=== PATIENT | male | born 1995 | race Caucasian/White ===

== ENCOUNTER 2017-11-24 22:16 | Emergency (ER) | payer OTHER ==
[~2017-11-24] VITALS: Ht 175.3 cm; Wt 75.9 kg
[2017-11-24 22:47] VITALS: TEMP 36.5; Ht 175.3 cm; Wt 75.9 kg
[2017-11-24] MEDS ORDERED: IBUPROFEN 600 MG TAB PO STA (23:13)
[2017-11-25 00:14] VITALS: BP 122/70; PULSE 88; O2SAT 98
--- NOTE | 2017-11-25 00:54 | EMERGENCY ROOM VISIT NOTE ---
History Report prepared by [place]: Karri Gayle Under the Supervision of: Dr. Bethel Zhang M.D. First contact with patient: 23:05 Chief Complaint: KNEEPAIN Stated Complaint: R KNEE PAIN History of Present Illness The patient is a 22 year old male who presents to the Emergency Room with complaints of pain in his right knee that occurred suddenly this evening while playing basketball. The patient states that his right foot was planted in the ground and he tried to make a turn and heard a "pop" in the knee. He has a history of a torn ACL in the right knee, and notes that his sound was not as severe as when he tore the ACL. He denies any other injuries while playing basketball. He currently has a prescriptions for an MRI for the right knee. Source of History: patient Onset: Just [employer] Position: knee (right) Quality: other (Basketball Injury) Associated Symptoms: No back pain Review of Systems See HPI for pertinent positives & negatives. A total of 4 systems reviewed and were otherwise negative. Past Medical & Surgical Medical Problems: (1) ACL injury tear ACL injury tear Family History Cancer Social History Smoking Status: Never Smoker Marital Status: single Housing Status: lives with roommate Occupation Status: [employer] student Current/Historical Medications No Active Prescriptions or Reported Meds Allergies Coded Allergies: Penicillins (Verified Allergy, Unknown, ? childhood rx can't recall, ) Physical Exam Vital Signs Date Time Temp Pulse Resp B/P (MAP) Pulse Ox O2 Delivery O2 Flow Rate FiO2 11/25/17 00:14 88 20 122/70 98 11/24/17 22:47 36.5 76 18 139/81 97 Room Air Physical Exam Constitutional: Vital signs reviewed. Musculoskeletal: No peripheral edema. There is tenderness to the medial join line of the right knee without significant swelling. Drawer sign is negative anteriorly and posteriorly. There is pain with varus stress. Integumentary: No cyanosis. Neurological: The patient is awake and alert. No focal deficits. Psychiatric: Normal affect. Medical Decision & Procedures ER Provider Diagnostic Interpretation: Radiology results as stated below per my review: RIGHT KNEE X-RAY: Right knee x-ray reveals no acute fracture or dislocation. Medications Administered Medications (Trade) Dose Ordered Sig/Joaquin Route Start Time Stop Time Status Last Admin Dose Admin Ibuprofen (Motrin Tab) 600 mg NOW STAT PO 11/24/17 23:13 11/24/17 23:15 DC 11/24/17 23:13 600 MG ED Course 2307: The patient was evaluated in room A8. A complete history and physical exam was performed. 2313: Ordered Motrin Tab 600 mg PO. Upon reevaluation, the patient appeared to have improvement of [] symptoms. I discussed tonight's findings with []. [] verbalized agreement of the treatment plan. [] was discharged home. Medical Decision This is a 22-year-old male who presents with knee pain. Differential diagnosis includes avulsion fracture, joint effusion, meniscal injury, ligamentous injury. I did perform a limited focused review of portions of the patient's old chart on the electronic medical record. The patient has had no recent pertinent visits to this hospital. I did evaluate the patient as noted above. I did order and personally review the patient's a knee x-ray as described above. There is no evidence of acute fracture or dislocation on my examination. The patient was placed in a knee immobilizer and given crutches. He states he already has a prescription for an MRI of his knee due to his prior injuries. I did advise that he schedule his MRI and follow with orthopedics. He was discharged in good condition. Medication Reconcilliation Current Medication List: was personally reviewed by me Blood Pressure Screening Patient's blood pressure: Elevated blood pressure Impression Primary Impression: Internal derangement of right knee Scribe Attestation The scribe's documentation has been prepared under my direct and personally reviewed by me in its entirety. I confirm that the note above accurately reflects all work, treatment, procedures, and medical decision making performed by me. Departure Information Dispostion Home / Self-Care Prescriptions No Active Prescriptions or Reported Meds Forms HOME CARE DOCUMENTATION FORM, IMPORTANT VISIT INFORMATION Patient Instructions My [facility] Additional Instructions You have been examined and treated today on an emergency basis only. This is not a substitute for, or an effort to provide, complete comprehensive medical care. It is impossible to recognize and treat all injuries or illnesses in a single emergency department visit. It is therefore important that you follow up closely with [facility]. Call as soon as possible for an appointment. Make an appointment for your outpatient MRI. Return for worsening symptoms or if you develop any other concerning symptoms.
--- NOTE | 2017-11-25 07:07 | DIAGNOSTIC IMAGING REPORT ---
R KNEE 1 OR 2 VIEWS ROUTINE CLINICAL HISTORY: 22 years-old Male presenting with right knee pain. TECHNIQUE: Frontal and lateral views of the right knee were obtained. COMPARISON: None. FINDINGS: No acute fracture or malalignment. Joint spaces preserved. Osteophytosis most prominent in the lateral compartment. A central osteophyte is also noted at the lateral femoral condyle. Small knee joint effusion suspected. Ossicle in the anterior joint space evident on lateral view may represent a loose body. IMPRESSION: 1. No acute osseous injury of the right knee. 2. Degenerative changes in the lateral compartment. These appear advanced for the patient's age. Possibility of posttraumatic degenerative change could be considered. Electronically signed by: Roberto Vazquez M.D. 11/25/2017 7:06 AM Dictated Date/Time: 11/25/2017 7:04 AM
== END 2017-11-25 00:16 | disposition home or self-care (01) ==
LOC: C.EDB 22:17 → C.EDA 11-25 00:16
DX: M23.91 Unspecified internal derangement of right knee (principal); Z87.828 Personal history of other (healed) physical injury and trauma

== ENCOUNTER 2018-01-09 01:56 | Emergency (ER) | payer OTHER ==
[~2018-01-09] VITALS: Ht 175.3 cm; Wt 75.0 kg
[2018-01-09 02:00] VITALS: TEMP 36.5; Ht 175.3 cm; Wt 75.0 kg
[2018-01-09] MEDS ORDERED: GELATIN SPONGE 12-7MM EXT ONE (02:45)
[2018-01-09 03:12] VITALS: BP 131/72; PULSE 89; O2SAT 96
--- NOTE | 2018-01-09 22:39 | EMERGENCY ROOM VISIT NOTE ---
History First contact with patient: 02:04 Chief Complaint: KNEEPAIN Stated Complaint: BLOODY KNEE History of Present Illness The patient is a 22 year old male who presents to the Emergency Room with complaints of blood coming from his right knee. The patient evidently had a small surgical procedure performed at [facility] last week. The patient states that he had been doing well, and decided to go out tonight to drink. As he was walking around he started noticing blood on his clothing. He does not recall fall or further injury or trauma. The patient is not on blood thinners. He is otherwise usually healthy. He rates his current discomfort a 11/05. Review of Systems More than 10 systems were reviewed and otherwise negative with the exception of history of present illness. Past Medical/Surgical History Medical Problems: (1) ACL injury tear Family History Cancer Social History Smoking Status: Never Smoker Marital Status: single Housing Status: lives with roommate Occupation Status: [employer] student Current/Historical Medications No Active Prescriptions or Reported Meds Physical Exam Vital Signs Date Time Temp Pulse Resp B/P (MAP) Pulse Ox O2 Delivery O2 Flow Rate FiO2 01/09/18 03:12 89 20 131/72 96 01/09/18 02:00 36.5 113 20 133/88 96 Room Air Partial Rebreather Physical Exam VITALS: Vitals are noted on the nurse's note and reviewed by myself. Vital signs stable. GENERAL: Well-developed, well-nourished, white male, who is in no acute distress and resting comfortably. Patient is cooperative with the examination. HEART: Regular rate and rhythm without murmurs gallops or rubs. LUNGS: Clear to auscultation bilaterally without wheezes, rales or rhonchi. No retractions or accessory muscle use. MUSCULOSKELETAL: Several well-healing puncture wounds over the right knee are noted consistent with orthoscopic surgery. There is a horizontal sutured laceration that is bleeding along the medial aspect. This is a very slow but steady venous type oozing. No evidence of cellulitis or abscess. No purulence. Medical Decision & Procedures Medications Administered Medications (Trade) Dose Ordered Sig/Joaquin Route Start Time Stop Time Status Last Admin Dose Admin Gelatin (Surgifoam Sponge 12-7MM (SMALL)) 1 ea NOW ONCE EXT 01/09/18 02:45 01/09/18 02:46 DC 01/09/18 03:01 1 EA ED Course Physical exam and history were performed. Nursing notes, EMR, and Medication List were personally reviewed. Patient appears to have venous oozing from arthroscopic surgery about a week ago. The patient was evidently drinking tonight and was walking and more active than normal. He was not wearing a brace or using any ambulatory devices. He has a notable amount of blood on his bandages, which were removed and discarded. The wound was still sutured and additional suturing was not felt necessary. The patient was cleansed. The wound was treated with Gelfoam and a pressure dressing. He also has an overlying Oneal wrap. This will help provide some immobilization. The patient was advised to avoid bending of the knee and use crutches. He is to follow with his surgeon next week as scheduled. He was otherwise invited back to the ER with any new, worsening, or concerning symptoms. The chart was completed utilizing [employer] Speech Voice Recognition Software. Grammatical errors, random word insertions, pronoun errors, and incomplete sentences are an occasional consequence of this system due to software limitations, ambient noise, and hardware issues. Any formal questions or concerns about the content, text, or information contained within the body of this dictation should be directly addressed to the provider for clarification. . Medical Decision Differential diagnosis includes, but is not limited to: Laceration, abrasion, infection, postoperative bleeding, injury, and others Impression Primary Impression: Post-op bleeding Departure Information Dispostion Home / Self-Care Condition GOOD Prescriptions No Active Prescriptions or Reported Meds Forms HOME CARE DOCUMENTATION FORM, IMPORTANT VISIT INFORMATION Patient Instructions My [facility] Additional Instructions You were seen and evaluated today on an emergency basis only. This is not a substitute for, or an effort to provide, complete comprehensive medical care. It is not possible to recognize and treat all injuries or illnesses in a single emergency department visit. For this reason it is recommended that you followup with your orthopedic surgeon for ongoing care and evaluation. Continue to wrap your knee as directed by your orthopedist. Keep the Gelfoam dressing in place for the next 2-3 days. You may change the gauze and Oneal wrap as needed You are welcome to return to the emergency department anytime with new, worsening, or concerning symptoms.
== END 2018-01-09 03:12 | disposition home or self-care (01) ==
LOC: C.EDB 01:58
DX: L76.22 Postprocedural hemorrhage of skin and subcutaneous tissue following other procedure (principal)